=== PATIENT | male | born 2000 | race Caucasian/White ===

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

== ENCOUNTER 2023-12-04 18:43 | Emergency (ER) | payer MEDICAID ==
[~2023-12-04] VITALS: Ht 172.7 cm; Wt 47.7 kg
[2023-12-04 19:30] VITALS: BP 123/78; PULSE 108; RESP 18; O2SAT 99
[2023-12-04 20:59] LABS: Basophils # (auto) 0.1 10 ^3/uL (0-0.2); Basophils % (auto) 1.1 % (0.0-2.0); Eosinophils # (auto) 0 10 ^3/uL (0-0.8); Eosinophils % (auto) 0.6 % (0.0-7.0); Hematocrit 42.8 % (41.0-53.0); Hemoglobin 14.5 g/dL (13.5-17.5); Lymphocytes # (auto) 1.3 10 ^3/uL (0.4-5.4); Lymphocytes % (auto) 21.6 % (10.0-50.0); Mean Corpuscular Hgb Conc. 33.9 g/dL (32.0-36.0); Mean Corpuscular Volume 79.7 fL (80.0-100.0); Monocytes # (auto) 0.5 10 ^3/uL (0-1.3); Monocytes % (auto) 8.6 % (0.0-12.0); Neutrophils # (auto) 4.2 10 ^3/uL (1.6-8.6); Neutrophils % (auto) 68.1 % (37.0-80.0); Nucleated Red Blood Cells % 0.4 %; Red Blood Cells 5.36 10^6/uL (4.5-5.90); Red Cell Distribution Width 12.7 % (11.8-14.3); White Blood Cell 6.1 10^3/uL (4.4-10.8)
[2023-12-04 21:08] LABS: Chloride 106 mmol/L (98-107); Potassium 3.7 mmol/L (3.5-5.1)
[2023-12-04 21:09] LABS: Calcium 10.1 mg/dL (8.5-10.1); Carbon Dioxide 28 mmol/L (20-30)
[2023-12-04 21:14] LABS: BUN/Creatinine Ratio 12.1 (10.0-20.0); Blood Urea Nitrogen 12 mg/dL (9-23); Glucose 89 mg/dL (74-106)
[2023-12-04 21:51] LABS: Anion Gap 6 (5-15); Sodium 140 mmol/L (136-145)
[2023-12-05] MEDS ORDERED: IBUPROFEN 800 MG TAB PO ONE (01:30)
[2023-12-05] MEDS ORDERED: IBUP1TAB5 PO (01:45)
== END 2023-12-05 01:38 | disposition left against medical advice (07) ==
LOC: ER 18:43
DX: R10.31 Right lower quadrant pain (principal); Z90.79 Acquired absence of other genital organ(s)
CPT/HCPCS: 36415; 76870; 80048; 85025